=== PATIENT | female | born 1955 | race African-American/Black ===

== ENCOUNTER 2022-08-06 13:37 | Inpatient (IN) | payer MEDICAID ==
[~2022-08-06] VITALS: Ht 162.6 cm; Wt 78.5 kg
[2022-08-06] MEDS ORDERED: ONDANSETRON HCL 4MG TABLET PO ONE (14:15)
[2022-08-06 15:23] LABS: CLARITY URINE CLEAR (CLEAR); COLOR URINE YELLOW (YELLOW); KETONES URINE NEGATIVE (NEGATIVE); LEUKOCYTE ESTERASE URINE NEGATIVE (NEGATIVE); NITRITE URINE NEGATIVE (NEGATIVE); OCCULT BLOOD URINE NEGATIVE (NEGATIVE); PROTEIN URINE 2+ (NEGATIVE); SPECIFIC GRAVITY URINE 1.018 (1.005-1.030); UROBILINOGEN URINE 0.2 E.U./dL (0.2-1.0)
[2022-08-06 16:30] LABS: BASOPHILS % 0.3 % (0.0-2.0); EOSINOPHILS % 1.1 % (0.0-5.0); HEMATOCRIT. 33.3 % (36.0-48.0); MEAN CORPUSCULAR HEMOGLOBIN 23.9 pg (28.0-32.0); MONOCYTES % 5.8 % (2.0-8.0); NEUTROPHILS % 76.8 % (40.0-76.0); PLATELET 246 x1000/uL (130-400); RED BLOOD CELL COUNT 4.62 mill/uL (4.2-5.4); RED CELL DISTRIBUTION WIDTH 18.6 % (11.6-14.6)
[2022-08-06 16:38] LABS: CHLORIDE 105 mEq/L (98-107)
[2022-08-06] MEDS ORDERED: NITROGLYCERIN OINT 1GM/INCH UDPKT TD ONE (17:15)
[2022-08-06] MEDS ORDERED: ASPIRIN 81MG TABLET PO ONE (17:15)
[2022-08-06] MEDS ORDERED: FUROSEMIDE 40MG/4ML VIAL IV ONE (17:15)
[2022-08-07] VITALS (7 sets, daily range): BP systolic 139–180; BP diastolic 70–83
[2022-08-07] MEDS ORDERED: DEXTROSE 50% WATER 50ML SYRINGE IV PRN (01:30)
[2022-08-07] MEDS ORDERED: NALOXONE HCL 0.4MG/ML VIAL IV PRN (01:30)
[2022-08-07 05:26] LABS: BASOPHILS % 0.4 % (0.0-2.0); EOSINOPHILS % 2.2 % (0.0-5.0); HEMATOCRIT. 30.8 % (36.0-48.0); HEMOGLOBIN. 10.3 g/dL (12.0-16.0); LYMPHOCYTES % 20.8 % (20.0-50.0); MEAN CORPUSCULAR VOLUME 71.5 fL (81.0-99.0); MEAN PLATELET VOLUME 8.1 fl (7.4-10.4); NEUTROPHILS % 68.6 % (40.0-76.0); PLATELET 224 x1000/uL (130-400); RED CELL DISTRIBUTION WIDTH 18.2 % (11.6-14.6)
[2022-08-07 05:34] LABS: CHLORIDE 105 mEq/L (98-107)
[2022-08-07] MEDS: INSULIN LISPRO 100 UNITS/ML SUBCUT SCH ×4 (06:10→21:43)
[2022-08-07] MEDS: BLOOD SUGAR DIAGNOSTIC STRIP TEST SCH ×4 (06:10→21:31)
[2022-08-07] MEDS: BENAZEPRIL 10MG TABLET PO SCH (09:03)
[2022-08-07] MEDS: FUROSEMIDE 40MG/4ML VIAL IVP SCH ×2 (09:04→17:00)
[2022-08-07] MEDS: ENOXAPARIN 40MG/0.4ML SYR SUBCUT SCH (09:04)
[2022-08-07] MEDS: CARVEDILOL 3.125 MG TABLET PO SCH ×2 (09:04→21:39)
[2022-08-07] MEDS: AMLODIPINE 10MG TABLET PO SCH (12:19)
[2022-08-07 14:23] LABS: *AMPHETAMINES SCREEN URINE NEGATIVE (NEGATIVE); *BARBITURATES SCREEN URINE NEGATIVE (NEGATIVE); *BENZODIAZEPINES SCREEN URINE NEGATIVE (NEGATIVE); *COCAINE SCREEN URINE NEGATIVE (NEGATIVE); CANNABINOID URINE SCREEN NEGATIVE (NEGATIVE); METHADONE URINE SCREEN NEGATIVE (NEGATIVE); OPIATES URINE SCREEN NEGATIVE (NEGATIVE); PHENCYCLIDINE URINE SCREEN NEGATIVE (NEGATIVE)
[2022-08-07] MEDS: HYDROCODONE/ACETAMINOPHEN 5/325MG TABLET PO PRN (15:05)
[2022-08-08] VITALS: BP 109/67
[2022-08-08 04:00] VITALS: BP 149/77
[2022-08-08] MEDS: BLOOD SUGAR DIAGNOSTIC STRIP TEST SCH ×4 (05:49→21:20)
[2022-08-08] MEDS: INSULIN LISPRO 100 UNITS/ML SUBCUT SCH ×4 (05:49→21:00)
[2022-08-08 08:00] VITALS: BP 158/90
[2022-08-08] MEDS: CARVEDILOL 3.125 MG TABLET PO SCH ×2 (09:17→21:16)
[2022-08-08] MEDS: AMLODIPINE 10MG TABLET PO SCH (09:17)
[2022-08-08] MEDS: BENAZEPRIL 10MG TABLET PO SCH ×2 (09:17→21:16)
[2022-08-08] MEDS: FUROSEMIDE 40MG/4ML VIAL IVP SCH (09:18)
[2022-08-08] MEDS: ENOXAPARIN 40MG/0.4ML SYR SUBCUT SCH (09:19)
[2022-08-08 12:00] VITALS: BP 150/76
[2022-08-08] MEDS: CITALOPRAM HYDROBROMIDE 10MG TABLET PO SCH (15:08)
[2022-08-08 16:00] VITALS: BP 174/84
[2022-08-08 17:06] LABS: BASOPHILS % 0.4 % (0.0-2.0); EOSINOPHILS % 1.5 % (0.0-5.0); HEMATOCRIT. 36.6 % (36.0-48.0); HEMOGLOBIN. 12.2 g/dL (12.0-16.0); LYMPHOCYTES % 17.9 % (20.0-50.0); MEAN CORPUSCULAR HEMOGLOBIN 23.9 pg (28.0-32.0); MEAN CORPUSCULAR VOLUME 71.8 fL (81.0-99.0); MEAN PLATELET VOLUME 8.8 fl (7.4-10.4); MONOCYTES % 5.1 % (2.0-8.0); NEUTROPHILS % 75.1 % (40.0-76.0); PLATELET 258 x1000/uL (130-400); RED CELL DISTRIBUTION WIDTH 18.1 % (11.6-14.6)
[2022-08-08 17:22] LABS: CHLORIDE 99 mEq/L (98-107)
[2022-08-08 20:00] VITALS: BP 146/86
[2022-08-08] MEDS: DIPHENHYDRAMINE 50MG CAPSULE PO PRN (21:16)
[2022-08-09] VITALS: BP 166/89
[2022-08-09] MEDS ORDERED: CLONIDINE 0.1MG TABLET PO PRN (00:45)
[2022-08-09 04:00] VITALS: BP 150/73
[2022-08-09] MEDS: BLOOD SUGAR DIAGNOSTIC STRIP TEST SCH ×4 (06:37→21:04)
[2022-08-09] MEDS: INSULIN LISPRO 100 UNITS/ML SUBCUT SCH ×4 (06:42→21:00)
[2022-08-09 08:00] VITALS: BP 143/86
[2022-08-09] MEDS ORDERED: HYDRALAZINE HCL 50MG TABLET PO SCH (08:30)
[2022-08-09] MEDS: BENAZEPRIL 10MG TABLET PO SCH ×2 (09:22→21:04)
[2022-08-09] MEDS: AMLODIPINE 10MG TABLET PO SCH (09:22)
[2022-08-09] MEDS: CITALOPRAM HYDROBROMIDE 10MG TABLET PO SCH (09:22)
[2022-08-09] MEDS: ENOXAPARIN 40MG/0.4ML SYR SUBCUT SCH (09:23)
[2022-08-09] MEDS: HYDRALAZINE HCL 50MG TABLET PO SCH ×2 (09:29→21:04)
[2022-08-09] MEDS: TRAMADOL 50MG TABLET PO PRN (09:30)
[2022-08-09 12:00] VITALS: BP 149/74
[2022-08-09 16:00] VITALS: BP 142/61
[2022-08-09 20:00] VITALS: BP 145/66
[2022-08-09] MEDS: DIPHENHYDRAMINE 50MG CAPSULE PO PRN (21:03)
[2022-08-10] VITALS: BP_SYST 154; BP_SYST 164; BP_DIAS 63; BP_DIAS 64
[2022-08-10 04:00] VITALS: BP 152/71
[2022-08-10] MEDS: INSULIN LISPRO 100 UNITS/ML SUBCUT SCH ×4 (06:30→21:00)
[2022-08-10] MEDS: BLOOD SUGAR DIAGNOSTIC STRIP TEST SCH ×4 (06:30→21:33)
[2022-08-10 08:00] VITALS: BP 148/80
[2022-08-10] MEDS: BENAZEPRIL 10MG TABLET PO SCH ×2 (08:41→21:18)
[2022-08-10] MEDS: AMLODIPINE 10MG TABLET PO SCH (08:42)
[2022-08-10] MEDS: ENOXAPARIN 40MG/0.4ML SYR SUBCUT SCH (08:42)
[2022-08-10] MEDS: HYDROCODONE/ACETAMINOPHEN 5/325MG TABLET PO PRN (08:44)
[2022-08-10] MEDS: HYDRALAZINE HCL 50MG TABLET PO SCH ×2 (08:45→21:18)
[2022-08-10] MEDS: CITALOPRAM HYDROBROMIDE 10MG TABLET PO SCH (08:50)
[2022-08-10 12:00] VITALS: BP 145/66
[2022-08-10 16:00] VITALS: BP 160/67
[2022-08-10 17:49] LABS: VITAMIN B12 SERUM 323 pg/mL (211-911)
[2022-08-10 20:00] VITALS: BP 131/80
[2022-08-11] VITALS: BP 182/84
[2022-08-11 04:00] VITALS: BP 176/83
[2022-08-11] MEDS: INSULIN LISPRO 100 UNITS/ML SUBCUT SCH ×4 (05:25→21:33)
[2022-08-11] MEDS: BLOOD SUGAR DIAGNOSTIC STRIP TEST SCH ×4 (05:25→21:19)
[2022-08-11] MEDS: CLONIDINE 0.1MG TABLET PO PRN (05:27)
[2022-08-11 07:17] VITALS: BP 138/72
[2022-08-11] MEDS: ENOXAPARIN 40MG/0.4ML SYR SUBCUT SCH (08:00)
[2022-08-11] MEDS: CITALOPRAM HYDROBROMIDE 10MG TABLET PO SCH (08:01)
[2022-08-11] MEDS: AMLODIPINE 10MG TABLET PO SCH (08:01)
[2022-08-11] MEDS: HYDRALAZINE HCL 50MG TABLET PO SCH ×2 (08:01→21:00)
[2022-08-11] MEDS: BENAZEPRIL 10MG TABLET PO SCH ×2 (08:01→21:00)
[2022-08-11] MEDS: CYANOCOBALAMIN 1000MCG/ML VIAL IM SCH (10:39)
[2022-08-11 12:00] VITALS: BP 139/61
[2022-08-11 16:00] VITALS: BP 136/63
[2022-08-11 20:38] VITALS: BP 109/53
[2022-08-11] MEDS: ONDANSETRON HCL 4MG/2ML INJ IV PRN (21:32)
[2022-08-12 00:21] VITALS: BP 137/59
[2022-08-12] MEDS: TRAMADOL 50MG TABLET PO PRN ×2 (00:34→14:03)
[2022-08-12 04:00] VITALS: BP 101/68
[2022-08-12] MEDS: INSULIN LISPRO 100 UNITS/ML SUBCUT SCH ×4 (05:53→21:00)
[2022-08-12] MEDS: BLOOD SUGAR DIAGNOSTIC STRIP TEST SCH ×4 (05:53→21:11)
[2022-08-12 07:01] LABS: BASOPHILS % 0.7 % (0.0-2.0); EOSINOPHILS % 1.1 % (0.0-5.0); HEMATOCRIT. 34.5 % (36.0-48.0); HEMOGLOBIN. 11.6 g/dL (12.0-16.0); LYMPHOCYTES % 25.8 % (20.0-50.0); MEAN CORPUSCULAR HEMOGLOBIN 24.1 pg (28.0-32.0); MEAN PLATELET VOLUME 7.7 fl (7.4-10.4); NEUTROPHILS % 64.4 % (40.0-76.0); PLATELET 263 x1000/uL (130-400); RED BLOOD CELL COUNT 4.79 mill/uL (4.2-5.4); RED CELL DISTRIBUTION WIDTH 17.3 % (11.6-14.6)
[2022-08-12 08:00] VITALS: BP 132/57
[2022-08-12] MEDS: HYDRALAZINE HCL 50MG TABLET PO SCH ×2 (09:18→21:12)
[2022-08-12] MEDS: BENAZEPRIL 10MG TABLET PO SCH ×2 (09:19→21:12)
[2022-08-12] MEDS: CITALOPRAM HYDROBROMIDE 10MG TABLET PO SCH (09:19)
[2022-08-12] MEDS: AMLODIPINE 10MG TABLET PO SCH (09:19)
[2022-08-12] MEDS: CYANOCOBALAMIN 1000MCG/ML VIAL IM SCH (09:20)
[2022-08-12] MEDS: ENOXAPARIN 40MG/0.4ML SYR SUBCUT SCH (09:20)
[2022-08-12 12:00] VITALS: BP 118/51
[2022-08-12] MEDS ORDERED: NALOXONE HCL 0.4MG/ML VIAL IV PRN (13:00)
[2022-08-12] MEDS: SODIUM CHLORIDE 0.45% 1,000 ML IV SCH (14:06)
[2022-08-12 16:00] VITALS: BP 129/62
[2022-08-12 20:00] VITALS: BP 125/65
[2022-08-12] MEDS: DIPHENHYDRAMINE 50MG CAPSULE PO PRN (21:29)
[2022-08-13] VITALS: BP 158/70
[2022-08-13 04:00] VITALS: BP 149/74
[2022-08-13] MEDS: INSULIN LISPRO 100 UNITS/ML SUBCUT SCH ×4 (05:57→20:21)
[2022-08-13] MEDS: BLOOD SUGAR DIAGNOSTIC STRIP TEST SCH ×4 (05:57→20:21)
[2022-08-13 08:00] VITALS: BP 145/63
[2022-08-13] MEDS: CYANOCOBALAMIN 1000MCG/ML VIAL IM SCH (08:28)
[2022-08-13] MEDS: HYDRALAZINE HCL 50MG TABLET PO SCH ×2 (08:29→20:22)
[2022-08-13] MEDS: CITALOPRAM HYDROBROMIDE 10MG TABLET PO SCH (08:29)
[2022-08-13] MEDS: BENAZEPRIL 10MG TABLET PO SCH ×2 (08:30→20:22)
[2022-08-13] MEDS: AMLODIPINE 10MG TABLET PO SCH (08:30)
[2022-08-13] MEDS: SODIUM CHLORIDE 0.45% 1,000 ML IV SCH (08:33)
[2022-08-13] MEDS: ENOXAPARIN 40MG/0.4ML SYR SUBCUT SCH (08:55)
[2022-08-13 09:07] LABS: BASOPHILS % 0.5 % (0.0-2.0); EOSINOPHILS % 0.9 % (0.0-5.0); HEMATOCRIT. 34.3 % (36.0-48.0); HEMOGLOBIN. 11.4 g/dL (12.0-16.0); LYMPHOCYTES % 21.7 % (20.0-50.0); MEAN CORPUSCULAR HEMOGLOBIN 23.9 pg (28.0-32.0); MEAN CORPUSCULAR VOLUME 71.8 fL (81.0-99.0); MEAN PLATELET VOLUME 7.6 fl (7.4-10.4); MONOCYTES % 6.8 % (2.0-8.0); NEUTROPHILS % 70.1 % (40.0-76.0); PLATELET 260 x1000/uL (130-400); RED BLOOD CELL COUNT 4.77 mill/uL (4.2-5.4); RED CELL DISTRIBUTION WIDTH 17.3 % (11.6-14.6)
[2022-08-13 12:00] VITALS: BP 160/75
[2022-08-13 16:00] VITALS: BP 157/63
[2022-08-13 20:00] VITALS: BP 157/79
[2022-08-14] VITALS: BP 162/70
[2022-08-14] MEDS: CLONIDINE 0.1MG TABLET PO PRN (00:44)
[2022-08-14 04:00] VITALS: BP 136/60
[2022-08-14] MEDS: ONDANSETRON HCL 4MG/2ML INJ IV PRN (04:27)
[2022-08-14] MEDS: SODIUM CHLORIDE 0.45% 1,000 ML IV SCH (06:04)
[2022-08-14] MEDS: BLOOD SUGAR DIAGNOSTIC STRIP TEST SCH ×4 (06:08→20:18)
[2022-08-14] MEDS: INSULIN LISPRO 100 UNITS/ML SUBCUT SCH ×4 (06:08→20:19)
[2022-08-14 08:00] VITALS: BP 113/74
[2022-08-14] MEDS: CYANOCOBALAMIN 1000MCG/ML VIAL IM SCH (09:35)
[2022-08-14] MEDS: BENAZEPRIL 10MG TABLET PO SCH ×2 (09:36→21:04)
[2022-08-14] MEDS: AMLODIPINE 10MG TABLET PO SCH (09:37)
[2022-08-14] MEDS: ENOXAPARIN 40MG/0.4ML SYR SUBCUT SCH (09:39)
[2022-08-14] MEDS: CITALOPRAM HYDROBROMIDE 10MG TABLET PO SCH (09:43)
[2022-08-14] MEDS: HYDRALAZINE HCL 50MG TABLET PO SCH ×2 (09:43→21:04)
[2022-08-14] MEDS ORDERED: ARIPIPRAZOLE 5MG TABLET PO SCH (10:00)
[2022-08-14 12:00] VITALS: BP 129/61
[2022-08-14 16:00] VITALS: BP 137/50
[2022-08-14 20:00] VITALS: BP 149/57
[2022-08-14] MEDS: HYDROCODONE/ACETAMINOPHEN 5/325MG TABLET PO PRN (22:44)
[2022-08-15] VITALS: BP 148/62
[2022-08-15] MEDS: ONDANSETRON HCL 4MG/2ML INJ IV PRN (02:48)
[2022-08-15] MEDS: HYDROCODONE/ACETAMINOPHEN 5/325MG TABLET PO PRN (02:48)
[2022-08-15 04:00] VITALS: BP 119/62
[2022-08-15] MEDS: BLOOD SUGAR DIAGNOSTIC STRIP TEST SCH ×4 (06:40→21:45)
[2022-08-15] MEDS: INSULIN LISPRO 100 UNITS/ML SUBCUT SCH ×4 (06:41→21:00)
[2022-08-15] MEDS: HYDRALAZINE HCL 50MG TABLET PO SCH ×2 (08:56→21:46)
[2022-08-15] MEDS: CITALOPRAM HYDROBROMIDE 10MG TABLET PO SCH (08:56)
[2022-08-15] MEDS: BENAZEPRIL 10MG TABLET PO SCH ×2 (08:56→21:46)
[2022-08-15] MEDS: AMLODIPINE 10MG TABLET PO SCH (08:57)
[2022-08-15] MEDS: ENOXAPARIN 40MG/0.4ML SYR SUBCUT SCH (08:57)
[2022-08-15] MEDS: CYANOCOBALAMIN 1000MCG/ML VIAL IM SCH (08:58)
[2022-08-15 16:31] VITALS: BP 151/76
[2022-08-15 16:32] LABS: CHLORIDE 109 mEq/L (98-107)
[2022-08-15 18:04] LABS: T4 FREE 1.51 ng/dL (0.76-1.46)
[2022-08-15 18:17] LABS: FOLIC ACID (FOLATE) SERUM 19.3 ng/mL (>5.38)
[2022-08-15 20:00] VITALS: BP 116/51
[2022-08-16] VITALS (7 sets, daily range): BP systolic 122–172; BP diastolic 64–90
[2022-08-16] MEDS: BLOOD SUGAR DIAGNOSTIC STRIP TEST SCH ×4 (06:16→20:00)
[2022-08-16] MEDS: INSULIN LISPRO 100 UNITS/ML SUBCUT SCH ×4 (06:16→20:32)
[2022-08-16 07:28] LABS: BASOPHILS % 0.5 % (0.0-2.0); EOSINOPHILS % 1.1 % (0.0-5.0); HEMOGLOBIN. 11.4 g/dL (12.0-16.0); LYMPHOCYTES % 20.1 % (20.0-50.0); MEAN CORPUSCULAR HEMOGLOBIN 24.2 pg (28.0-32.0); MEAN CORPUSCULAR VOLUME 72.2 fL (81.0-99.0); MONOCYTES % 7.9 % (2.0-8.0); NEUTROPHILS % 70.4 % (40.0-76.0); PLATELET 255 x1000/uL (130-400)
[2022-08-16] MEDS: CYANOCOBALAMIN 1000MCG/ML VIAL IM SCH (08:45)
[2022-08-16] MEDS: ENOXAPARIN 40MG/0.4ML SYR SUBCUT SCH (08:46)
[2022-08-16] MEDS: BENAZEPRIL 10MG TABLET PO SCH ×2 (08:47→20:30)
[2022-08-16] MEDS: HYDRALAZINE HCL 50MG TABLET PO SCH ×2 (08:47→20:29)
[2022-08-16] MEDS: CITALOPRAM HYDROBROMIDE 10MG TABLET PO SCH (08:48)
[2022-08-16] MEDS: AMLODIPINE 10MG TABLET PO SCH (08:49)
[2022-08-16] MEDS: DOCUSATE SODIUM 250MG CAPSULE PO SCH (14:20)
[2022-08-16] MEDS: DONEPEZIL HCL 5MG TABLET PO SCH (14:21)
[2022-08-16] MEDS ORDERED: LACTULOSE 20G/30ML UDC PO PRN (18:13)
[2022-08-16] MEDS: ACETAMINOPHEN 325MG TABLET PO PRN (20:36)
[2022-08-17] VITALS: BP 168/82
[2022-08-17] MEDS: CLONIDINE 0.1MG TABLET PO PRN (00:20)
[2022-08-17] MEDS: HYDROCODONE/ACETAMINOPHEN 5/325MG TABLET PO PRN (00:22)
[2022-08-17 04:00] VITALS: BP 141/67
[2022-08-17 06:13] LABS: 25-HYDROXY VITAMIN D3 18 ng/mL (.)
[2022-08-17] MEDS: BLOOD SUGAR DIAGNOSTIC STRIP TEST SCH ×4 (06:37→21:02)
[2022-08-17] MEDS: INSULIN LISPRO 100 UNITS/ML SUBCUT SCH ×4 (07:50→20:58)
[2022-08-17 08:00] VITALS: BP 160/82
[2022-08-17] MEDS: ENOXAPARIN 40MG/0.4ML SYR SUBCUT SCH (09:00)
[2022-08-17] MEDS: CYANOCOBALAMIN 1000MCG/ML VIAL IM SCH (10:38)
[2022-08-17] MEDS: DONEPEZIL HCL 5MG TABLET PO SCH (10:44)
[2022-08-17] MEDS: AMLODIPINE 10MG TABLET PO SCH (10:45)
[2022-08-17] MEDS: BENAZEPRIL 10MG TABLET PO SCH ×2 (10:45→20:59)
[2022-08-17] MEDS: CITALOPRAM HYDROBROMIDE 10MG TABLET PO SCH (10:46)
[2022-08-17] MEDS: HYDRALAZINE HCL 50MG TABLET PO SCH (10:50)
[2022-08-17] MEDS: DOCUSATE SODIUM 250MG CAPSULE PO SCH (10:56)
[2022-08-17 12:00] VITALS: BP 156/74
[2022-08-17] MEDS ORDERED: ERGOCALCIFEROL 50000UNITS CAPSULE PO SCH (14:00)
[2022-08-17 16:00] VITALS: BP 144/63
[2022-08-17 20:00] VITALS: BP 157/68
[2022-08-17] MEDS: HYDRALAZINE HCL 100MG TABLET PO SCH (20:59)
[2022-08-18] VITALS: BP 162/71
[2022-08-18] MEDS: CLONIDINE 0.1MG TABLET PO PRN (00:12)
[2022-08-18] MEDS: ACETAMINOPHEN 325MG TABLET PO PRN (03:41)
[2022-08-18] MEDS: BLOOD SUGAR DIAGNOSTIC STRIP TEST SCH ×4 (07:20→21:02)
[2022-08-18] MEDS: INSULIN LISPRO 100 UNITS/ML SUBCUT SCH ×4 (07:50→20:47)
[2022-08-18 08:00] VITALS: BP 114/79
[2022-08-18] MEDS: HYDRALAZINE HCL 100MG TABLET PO SCH ×2 (08:46→20:19)
[2022-08-18] MEDS: CITALOPRAM HYDROBROMIDE 10MG TABLET PO SCH (08:46)
[2022-08-18] MEDS: DONEPEZIL HCL 5MG TABLET PO SCH (08:46)
[2022-08-18] MEDS: AMLODIPINE 10MG TABLET PO SCH (08:47)
[2022-08-18] MEDS: BENAZEPRIL 10MG TABLET PO SCH ×2 (08:47→20:20)
[2022-08-18] MEDS: DOCUSATE SODIUM 250MG CAPSULE PO SCH (08:49)
[2022-08-18] MEDS: ENOXAPARIN 40MG/0.4ML SYR SUBCUT SCH (08:54)
[2022-08-18 12:00] VITALS: BP 109/55
[2022-08-18 16:00] VITALS: BP 115/51
[2022-08-18 20:00] VITALS: BP 137/69
[2022-08-19] VITALS: BP 146/76
[2022-08-19 04:00] VITALS: BP 149/82
[2022-08-19] MEDS: BLOOD SUGAR DIAGNOSTIC STRIP TEST SCH ×2 (07:37→21:00)
[2022-08-19] MEDS: INSULIN LISPRO 100 UNITS/ML SUBCUT SCH ×2 (07:38→21:00)
[2022-08-19 08:00] VITALS: BP 151/73
[2022-08-19] MEDS: DONEPEZIL HCL 5MG TABLET PO SCH (08:30)
[2022-08-19] MEDS: HYDRALAZINE HCL 100MG TABLET PO SCH ×2 (08:30→21:42)
[2022-08-19] MEDS: ENOXAPARIN 40MG/0.4ML SYR SUBCUT SCH (08:30)
[2022-08-19] MEDS: CITALOPRAM HYDROBROMIDE 10MG TABLET PO SCH (08:30)
[2022-08-19] MEDS: BENAZEPRIL 10MG TABLET PO SCH ×2 (08:30→21:42)
[2022-08-19] MEDS: DOCUSATE SODIUM 250MG CAPSULE PO SCH (08:31)
[2022-08-19] MEDS: AMLODIPINE 10MG TABLET PO SCH (08:31)
[2022-08-19 12:00] VITALS: BP 160/78
[2022-08-19 16:00] VITALS: BP 160/70
[2022-08-19 20:00] VITALS: BP 155/72
[2022-08-19] MEDS: MIRTAZAPINE 15MG TABLET PO SCH (21:43)
[2022-08-19] MEDS: DIPHENHYDRAMINE 50MG CAPSULE PO PRN (21:43)
[2022-08-19] MEDS: HYDROCODONE/ACETAMINOPHEN 5/325MG TABLET PO PRN (21:48)
[2022-08-20] VITALS: BP 148/54
[2022-08-20 04:00] VITALS: BP 156/71
[2022-08-20] MEDS: BLOOD SUGAR DIAGNOSTIC STRIP TEST SCH ×4 (06:26→20:55)
[2022-08-20] MEDS: INSULIN LISPRO 100 UNITS/ML SUBCUT SCH ×4 (07:50→20:55)
[2022-08-20 08:00] VITALS: BP 187/84
[2022-08-20] MEDS: HYDRALAZINE HCL 100MG TABLET PO SCH ×2 (08:30→20:54)
[2022-08-20] MEDS: BENAZEPRIL 10MG TABLET PO SCH ×2 (08:30→20:55)
[2022-08-20] MEDS: DONEPEZIL HCL 5MG TABLET PO SCH (08:31)
[2022-08-20] MEDS: AMLODIPINE 10MG TABLET PO SCH (08:31)
[2022-08-20] MEDS: DOCUSATE SODIUM 250MG CAPSULE PO SCH (08:31)
[2022-08-20] MEDS: ENOXAPARIN 40MG/0.4ML SYR SUBCUT SCH (08:32)
[2022-08-20] MEDS: CITALOPRAM HYDROBROMIDE 10MG TABLET PO SCH (08:35)
[2022-08-20 12:00] VITALS: BP 151/60
[2022-08-20] MEDS: SODIUM CHLORIDE 0.45% 1,000 ML IV SCH (15:45)
[2022-08-20 16:00] VITALS: BP 166/78
[2022-08-20] MEDS ORDERED: NA PHOS,M-B/NA PHOS,DI-BA ENEMA 118ML PR NR (18:30)
[2022-08-20 20:00] VITALS: BP 159/73
[2022-08-20] MEDS: MIRTAZAPINE 15MG TABLET PO SCH (20:55)
[2022-08-20] MEDS: DIPHENHYDRAMINE 50MG CAPSULE PO PRN (20:55)
[2022-08-20] MEDS: LACTULOSE 20G/30ML UDC PO SCH (20:56)
[2022-08-21] VITALS: BP 163/84
[2022-08-21] MEDS: ACETAMINOPHEN 325MG TABLET PO PRN ×2 (00:45→10:09)
[2022-08-21] MEDS: CLONIDINE 0.1MG TABLET PO PRN (00:45)
[2022-08-21 04:00] VITALS: BP 116/59
[2022-08-21] MEDS: SODIUM CHLORIDE 0.45% 1,000 ML IV SCH ×2 (04:05→17:25)
[2022-08-21] MEDS: INSULIN LISPRO 100 UNITS/ML SUBCUT SCH ×4 (07:50→21:00)
[2022-08-21 08:00] VITALS: BP 162/72
[2022-08-21] MEDS: BLOOD SUGAR DIAGNOSTIC STRIP TEST SCH ×4 (08:07→21:34)
[2022-08-21] MEDS: BENAZEPRIL 10MG TABLET PO SCH ×2 (10:08→21:31)
[2022-08-21] MEDS: DONEPEZIL HCL 5MG TABLET PO SCH (10:08)
[2022-08-21] MEDS: DOCUSATE SODIUM 250MG CAPSULE PO SCH (10:08)
[2022-08-21] MEDS: HYDRALAZINE HCL 100MG TABLET PO SCH ×2 (10:09→21:32)
[2022-08-21] MEDS: CITALOPRAM HYDROBROMIDE 10MG TABLET PO SCH (10:09)
[2022-08-21] MEDS: ENOXAPARIN 40MG/0.4ML SYR SUBCUT SCH (10:11)
[2022-08-21 12:00] VITALS: BP 147/68
[2022-08-21 16:00] VITALS: BP 151/74
[2022-08-21 20:00] VITALS: BP 161/58
[2022-08-21] MEDS ORDERED: NALOXONE HCL 0.4MG/ML VIAL IV PRN (20:15)
[2022-08-21] MEDS: MIRTAZAPINE 15MG TABLET PO SCH (21:31)
[2022-08-21] MEDS: LACTULOSE 20G/30ML UDC PO SCH (21:35)
[2022-08-22] VITALS: BP 154/67
[2022-08-22 04:00] VITALS: BP 149/70
[2022-08-22 07:05] LABS: BASOPHILS % 0.4 % (0.0-2.0); EOSINOPHILS % 1.8 % (0.0-5.0); HEMATOCRIT. 32.3 % (36.0-48.0); HEMOGLOBIN. 10.9 g/dL (12.0-16.0); LYMPHOCYTES % 30.4 % (20.0-50.0); MEAN CORPUSCULAR HEMOGLOBIN 24.5 pg (28.0-32.0); MEAN CORPUSCULAR VOLUME 72.5 fL (81.0-99.0); MEAN PLATELET VOLUME 8.8 fl (7.4-10.4); MONOCYTES % 7.6 % (2.0-8.0); NEUTROPHILS % 59.8 % (40.0-76.0); PLATELET 257 x1000/uL (130-400); RED BLOOD CELL COUNT 4.46 mill/uL (4.2-5.4); RED CELL DISTRIBUTION WIDTH 16.7 % (11.6-14.6)
[2022-08-22] MEDS: SODIUM CHLORIDE 0.45% 1,000 ML IV SCH (07:20)
[2022-08-22] MEDS: BLOOD SUGAR DIAGNOSTIC STRIP TEST SCH ×3 (07:50→16:45)
[2022-08-22] MEDS: INSULIN LISPRO 100 UNITS/ML SUBCUT SCH ×3 (07:50→17:15)
[2022-08-22 08:00] VITALS: BP 149/71
[2022-08-22] MEDS: DOCUSATE SODIUM 250MG CAPSULE PO SCH (08:24)
[2022-08-22] MEDS: CITALOPRAM HYDROBROMIDE 10MG TABLET PO SCH (08:25)
[2022-08-22] MEDS: AMLODIPINE 10MG TABLET PO SCH (08:25)
[2022-08-22] MEDS: HYDRALAZINE HCL 100MG TABLET PO SCH (08:25)
[2022-08-22] MEDS: DONEPEZIL HCL 5MG TABLET PO SCH ×2 (08:25→09:00)
[2022-08-22] MEDS: ENOXAPARIN 40MG/0.4ML SYR SUBCUT SCH (08:30)
[2022-08-22 08:31] LABS: CHLORIDE 106 mEq/L (98-107)
[2022-08-22] MEDS ORDERED: HYDROCODONE/ACETAMINOPHEN 5/325MG TABLET PO SCH (09:00)
[2022-08-22] MEDS: BENAZEPRIL 10MG TABLET PO SCH (09:26)
[2022-08-22 12:00] VITALS: BP 145/84
[2022-08-22] MEDS: DIPHENHYDRAMINE 50MG CAPSULE PO PRN (12:21)
[2022-08-22] MEDS: ARIPIPRAZOLE 5MG TABLET PO SCH ×2 (13:40→13:47)
[2022-08-22] MEDS: CLONIDINE 0.1MG TABLET PO PRN (15:52)
[2022-08-22 16:00] VITALS: BP 165/85
[2022-08-22 16:12] VITALS: BP 165/74
[2022-08-22] MEDS: ACETAMINOPHEN 325MG TABLET PO PRN (17:12)
== END 2022-08-22 17:49 | DRG 194 ==
LOC: ER 13:37 → MICUSO 20:23 → EDBEDREQ 20:35 → EDBEDREQTM 20:35 → 7EST 08-07 00:06 → 6EST 08-16 22:07 → 5WST 08-22 16:03
PROVIDERS: ADMIT Internal Medicine; ATTEND Internal Medicine
PROC: 4A0004Z Measurement of Central Nervous Electrical Activity, Open Approach (ICD-10-PCS; principal; 2022-08-16)
DX: I11.0 Hypertensive heart disease with heart failure (principal); G92.8 Other toxic encephalopathy; E85.4 Organ-limited amyloidosis; F02.83 Dementia in other diseases classified elsewhere, unspecified severity, with mood disturbance; E11.42 Type 2 diabetes mellitus with diabetic polyneuropathy; D64.9 Anemia, unspecified; E53.8 Deficiency of other specified B group vitamins; E55.9 Vitamin D deficiency, unspecified; I50.33 Acute on chronic diastolic (congestive) heart failure; Z20.822 Contact with and (suspected) exposure to COVID-19; E66.9 Obesity, unspecified; G89.4 Chronic pain syndrome; I83.90 Asymptomatic varicose veins of unspecified lower extremity; J44.9 Chronic obstructive pulmonary disease, unspecified; K59.00 Constipation, unspecified; R13.10 Dysphagia, unspecified; K64.9 Unspecified hemorrhoids; F32.A Depression, unspecified; R26.9 Unspecified abnormalities of gait and mobility; Z87.891 Personal history of nicotine dependence; Z82.49 Family history of ischemic heart disease and other diseases of the circulatory system; Z86.73 Personal history of transient ischemic attack (TIA), and cerebral infarction without residual deficits; Z68.29 Body mass index [BMI] 29.0-29.9, adult; F03.92 Unspecified dementia, unspecified severity, with psychotic disturbance
CPT/HCPCS: 36415; 70551; 71045; 80048; 80053; 80305; 80307; 80329; 81003; 82140; 82306; 82607; 82746; 82962; 83036; 83735; 83880; 84439; 84443; 84481; 84484; 85025; 85379; 87804; 92523; 93005; 93306; 93970; 97110; 97116; 97162; 97166; 97535; 99285; J1650; J1815; J1940; J2405; J3420; Q0162; Q0163